=== PATIENT | male | born 1950 | race Caucasian/White ===

== ENCOUNTER 2021-12-11 11:05 | Emergency (ER) | payer MEDICARE ==
[2021-12-11] MEDS ORDERED: Dicyclomine 20 MG/2 ML VIAL ONE (12:36)
[2021-12-11 13:23] LABS: SARS-CoV-2 NAA Rapid Test DETECTED (NotDetected)
[2021-12-11 13:43] LABS: Hemoglobin 14.2 g/dL (13.5-17.5); Mean Corpuscular HGB CONC 33.9 g/dL (32.0-36.0); Mean Corpuscular Hemoglobin 30.7 pg (27.0-33.0); Mean Corpuscular Volume 90.5 fl (81.2-95.1); Mean Platelet Volume 8.4 fl (7.4-10.4); Platelet Count 208 10x3/uL (150-450); RBC Distribution Width 12.5 % (11.5-14.5); Red Blood Cell (RBC) Count 4.63 10x6/uL (4.32-5.72); White Blood Cell (WBC) Count 5.2 10x3/uL (3.5-10.5)
[2021-12-11 13:46] LABS: MDiff Complete? YES
[2021-12-11 13:58] LABS: ALT (SGPT) 22 U/L (8-55); AST (SGOT) 21 U/L (5-34); Albumin 3.9 g/dL (3.4-4.8); Alkaline Phosphatase 63 U/L (40-110); Anion Gap 11 mmol/L (10-20); BUN (Urea Nitrogen) 10 mg/dL (8.4-25.7); Bilirubin, Total 0.4 mg/dL (0.2-1.2); Calc. Creatinine Clearance 0 mL/min (70-130); Calcium 8.5 mg/dL (7.8-10.44); Carbon Dioxide 27 mmol/L (23-31); Chloride 100 mmol/L (98-107); Estimated GFR 86; Globulin 2.3 g/dL (2.4-3.5); Glucose 102 mg/dL (83-110); Lipase 25 U/L (8-78); Potassium 3.4 mmol/L (3.5-5.1); Protein, Total 6.2 g/dL (5.8-8.1); Sodium 135 mmol/L (136-145)
[2021-12-11 14:17] LABS: Eosinophils 2 % (0-10); Neutrophil 48 % (42-75)
[2021-12-11 14:19] LABS: Lymphocytes 35 % (21-51); Monocytes 11 % (0-10); Reactive Lymphocytes 4 % (0-10)
[2021-12-11 14:21] LABS: Platelet Morphology Comment Appears Adequate
[2021-12-11] MEDS ORDERED: Potassium Chloride 20 MEQ TAB ONE (14:21)
== END 2021-12-11 14:51 | disposition home or self-care (01) ==
LOC: CSHERS 11:05
DX: U07.1 COVID-19 (principal); E87.6 Hypokalemia
CPT/HCPCS: 0240U; 80053; 83690; 85025; 36415; 96372; 99284